=== PATIENT | female | born 2000 | race Caucasian/White ===

== ENCOUNTER 2022-07-25 21:57 | Emergency (ER) | payer MEDICAID ==
[~2022-07-25] VITALS: Ht 162.6 cm; Wt 72.7 kg
[2022-07-25 22:04] VITALS: TEMP 98.2
[2022-07-25 22:43] VITALS: BP 90/60; PULSE 82
== END 2022-07-25 22:46 | disposition home or self-care (01) ==
LOC: COL.ER 21:57
DX: R42 Dizziness and giddiness (principal); T40.2X5A Adverse effect of other opioids, initial encounter; Z28.310 Unvaccinated for COVID-19